=== PATIENT | female | born 1950 | race Caucasian/White ===

== ENCOUNTER 2018-11-27 06:28 | Day surgery (SDC) | payer MEDICARE, OTHER, SELFPAY ==
--- NOTE | 2018-11-22 10:28 | EKG12_ITS ---
Test Reason : PREOP Blood Pressure : / mmHG Vent. Rate : 053 BPM Atrial Rate : 053 BPM P-R Int : 180 ms QRS Dur : 098 ms QT Int : 478 ms P-R-T Axes : 000 032 110 degrees QTc Int : [address] & T wave abnormality, consider anterolateral ischemia Abnormal ECG Confirmed by KEIRA HANSON, TIGRE ([id number]), assistant film editor FADUMO JACKSON ([id number]) on 11/26/2018 2:54:43 PM Referred By: Real Soto Confirmed By:BUCK CROCKETT MD
[2018-11-22 11:56] LABS: Anion Gap 4 (5-15); BUN 20 mg/dL (7-18); BUN/Creat Ratio 18.5 RATIO (10-20); Calcium,Total 9.7 mg/dL (8.5-10.1); Chloride 105 mmol/L (98-107); Creatinine, Serum 1.08 mg/dL (0.55-1.02); EST Glomerular Filtration Rate 53 mL/min (>60); Est Glom Filt Rate - Afr Amer 65 mL/min (>60); Glucose 112 mg/dL (74-106); Potassium 4.2 mmol/L (3.5-5.1); Sodium Level 139 mmol/L (136-145)
[2018-11-27] VITALS (7 sets, daily range): BP systolic 104–128; BP diastolic 62–81; PULSE 57–66; RESP 16; TEMP 35.8–36.8; O2SAT 93–100; BMI 31.2
[2018-11-27] MEDS: Lactated Ringers 1,000 ML 100 ML IV (07:21)
[2018-11-27] MEDS: Oxymetazoline 0.05% 1 SPRAY SPRAY.BTL 15 SPRAY (08:00)
--- NOTE | 2018-11-27 08:02 | PCM.DC ---
You will use the following diet at home:: No restrictions Your food should be the consistency of: Regular Additional Activity Instructions:: keep water out of left ear Call your doctor if your incision/area has: Increased Pain/ Swelling Additional Dressing/Incision Instructions:: mupirocin to tragus incision twice daily for 2 wks. Allergies/Adverse Reactions: Allergies Iodinated Contrast Media [Iodinated Contrast Media - IV Dye] Allergy (Verified 11/20/18 13:05) Hives Penicillins Allergy (Verified 11/20/18 13:05) Rash albuterol Adverse Reaction (Verified 11/20/18 13:05) Other insomnia Medications to take at Discharge Aspirin E.C. [Ecotrin] 81 mg PO DAILY@0800 03/18/15 Biotin [Buck Biotin] 10,000 mcg PO DAILY 03/18/15 Cholecalciferol (Vitamin D3) [Vitamin D3] 5,000 unit PO DAILY 03/18/15 Cyanocobalamin (Vitamin B-12) [Vitamin B12] 2,500 mcg PO DAILY 03/18/15 Metoprolol Tartrate [Lopressor (Beta Reece)] 50 mg PO BID 03/18/15 Montelukast [Singulair] 10 mg PO QHS 03/18/15 Omeprazole [Prilosec] 20 mg PO DAILY PRN PRN 03/18/15 Solifenacin Succinate [Vesicare] 5 mg PO DAILY 03/18/15 Triamterene 37.5MG/Hctz 25MG [Dyazide (G)] 1 cap PO DAILY 03/18/15 Umeclidinium Brm/Vilanterol Tr [Anoro Ellipta 62.5-25 Mcg INH] 1 inh PO DAILY PRN 03/18/15 Anastrozole [Arimidex] 1 mg PO DAILY 11/20/18 Olmesartan Medoxomil [Benicar] 20 mg PO DAILY 11/20/18 Blacklick-3/Dha/Epa/Fish Oil [Fish Oil 1,000 mg Softgel] 1 ea PO BID 11/20/18 Acetaminophen/Codeine #3 [Tylenol#3] 1 tab PO Q6H PRN PRN 3 Days #10 tab 11/27/18 Ciprofloxacin [Cipro] 250 mg PO BID #10 tab 11/27/18 The following prescriptions were given: Ciprofloxacin [Cipro] 250 mg PO BID #10 tab Prescription Printed Acetaminophen/Codeine #3 [Tylenol#3] 1 tab PO Q6H PRN PRN 3 Days #10 tab PRN Reason: Pain Prescription Printed Primary Care Physician: Joshua Guy [Primary Care Provider] - Test Results: Test results from this visit will be discussed in further detail at your follow-up appointment, if applicable. Please Follow Up With: Real Soto MD When: 1 month
--- NOTE | 2018-11-27 08:03 | PCM.OPRPT ---
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 eustachian tube dysfunction. 2. central perforation tympanic membrane, left Post-Operative Diagnosis: 1. eustachian tube dysfunction. 2. central perforation tympanic membrane, left Surgery/Procedure Performed:: 1. eustachian tube dilation, left. 2. cartilage tympanoplasty, left ear. 3. left tragal cartilage graft Type of Anesthesia:: General Description of Procedure: on the day of the procedure, after appropriate informed consent was obtained, the patient was brought to the operating room and placed in supine position on the operating table. she was placed under general endotracheal anesthesia by the anesthesiologist. the bilateral nasal cavities were decongested with oxymetazoline-soaked pledgets. the acclarent AERA system was inserted into the left nasal cavity and advanced into the left eustachian tube orifice using a 30 degree endoscope until there was a soft stop. the balloon was inflated to 12 daniela for 2 minutes and retracted. the left ear was prepped and draped in sterile fashion. the tragus was injected with lidocaine/epinephrine. the binocular operating microscope was used to evaluate the left ear. a speculum was placed and a 5x4mm posterior central perforation was seen. the edges were postage-stamped with a alvarez and an adhesion to the promontory was lysed. a 1 cm posterior tragal incision was made with a #15 blade. a portion of tragal cartilage was dissected in the supraperichondrial plane with an iris scizzor and harvested. hemostasis was achieved with the bipolar and the incision was closed with 5-0 fast gut. the graft was trimmed accordingly and scalloped into a butterfly cartilage graft using a knife under the microscope. this was carefully inserted into the tympanic membrane defect and secured into place, as one 'flange' was medial to the TM and one was lateral. gelfoam was placed lateral to the graft and bacitracin was placed lateral to the gelfoam. the patient was awoken from anesthesia and transferred to the PACU in stable condition.
[2018-11-27] MEDS: Ciprofloxacin 0.3% 2.5ml Bottle 1 DRP (08:10)
[2018-11-27] MEDS: Neomycin/Bacitracin/Polymyxin Ointment 1 APPLIC (08:30)
== END 2018-11-27 10:29 | disposition home or self-care (01) ==
LOC: SDC 06:29 → AC 06:29
PROVIDERS: Family Provider Internal Medicine; PCP Internal Medicine; Referring Provider Otolaryngology; Visit Provider Otolaryngology
PROC: (CPT 21235; principal; 2018-11-27 07:30)
PROC: (CPT 21235; 2018-11-27 07:30)
DX: H72.02 Central perforation of tympanic membrane, left ear (principal); H69.82 Other specified disorders of Eustachian tube, left ear; J30.2 Other seasonal allergic rhinitis; I10 Essential (primary) hypertension; K21.9 Gastro-esophageal reflux disease without esophagitis; J44.9 Chronic obstructive pulmonary disease, unspecified; Z85.3 Personal history of malignant neoplasm of breast; Z79.82 Long term (current) use of aspirin; Z79.51 Long term (current) use of inhaled steroids; Z79.899 Other long term (current) drug therapy
CPT/HCPCS: 00120; 21235; 69610; C9745; 36415; 80048; 93005; J7120; J2405

== ENCOUNTER → 2019-05-16 | Outpatient (CLI) | payer MEDICARE, OTHER, SELFPAY ==
[2018-11-27 07:02] VITALS: BMI 31.2
--- NOTE | 2019-05-16 | LES_PTH ---
PATIENT: MARY MCCARTHY LOC: [facility] U#:[id number] AGE/SX: 68/F ROOM: RE05/16/[address]: Dr. Kenny Hayden MD : [id number] BED: DIS: 05/16/2019 SPEC #: [id number] RECD: 05/16/19 09:49 STATUS: DENISE JOSEPHINE #: [id number] ЕЛЕНА: 05/16/19 00:[address]: Kenny Hayden DEPT: SURGICAL PATHOLOGY RECD BY: Rafael Davis ENTERED: 05/16/19 10:38 SP TYPE: Lesion OTHR DR: Dr. Joshua Guy MD Tissues: Skin of eyelid, NOS Procedures: Surgery Specimen Level IV HEADER OPERATION: Removal of lesion left upper lid PRE-OP DIAGNOSIS: Possible inclusion cyst TISSUE SUBMITTED: Left upper eyelid lesion MICROSCOPIC DIAGNOSIS Lesion of left upper eyelid, biopsy: Consistent with eccrine hydrocystoma. AM:yehuda 05/17/19 MICROSCOPIC DESCRIPTION Slides are reviewed. GROSS DESCRIPTION Received in fixative is one container labeled with the patient's name and designated left upper lid. The specimen consists of a piece of kelley-white skin measuring 0.6 x 0.2 x 0.1 cm. The specimen is totally submitted in one cassette. / SJ:rg 05/16/19 TC:1 CPT: 17559
== END | disposition home or self-care (01) ==
LOC: LABSPEC 09:56
PROVIDERS: PCP Internal Medicine; Referring Provider Ophthalmology; Visit Provider Ophthalmology
DX: L98.9 Disorder of the skin and subcutaneous tissue, unspecified (principal)
CPT/HCPCS: 88305

== ENCOUNTER → 2023-09-04 | Outpatient (CLI) | payer MEDICARE, SELFPAY ==
--- NOTE | 2023-09-04 09:38 | CDU_ITS ---
Reason For Study: Lt Eye Retinal Occlusion Rt. Velocities/BP Lt. Velocities/BP Prox CCA 80.1/18.6 cm/sec. Prox CCA 49.3/14.2 cm/sec. Mid CCA 61.4/14.2 cm/sec. Mid CCA 51.5/16.4 cm/sec. Dist CCA 55.9/12.0 cm/sec. Dist CCA 50.4/15.3 cm/sec. Prox ICA 71.3/17.5 cm/sec. Prox ICA 57.0/14.2 cm/sec. Mid ICA 55.9/17.5 cm/sec. Mid ICA 64.1/19.1 cm/sec. Dist ICA 70.2/17.5 cm/sec. Dist ICA 76.8/21.9 cm/sec. Rt. ICA/CCA = 1.2. Lt. ICA/CCA = 1.5. Prox ECA 59.4/6.5 cm/sec. Prox ECA 82.0/12.7 cm/sec. Rt. Vert. 27.7/7.0 cm/sec. Lt. Vert. 58.1/14.2 cm/sec. Right Extracranial There is intimal thickening but no significant atherosclerotic plaque noted in the right common carotid artery. There is heterogeneous, irregular atherosclerotic plaque noted in the right internal carotid artery. There is intimal thickening but no significant atherosclerotic plaque noted in the right external carotid artery. Antegrade flow is noted in the right vertebral artery. Left Extracranial There is intimal thickening but no significant atherosclerotic plaque noted in the left common carotid artery. There is heterogeneous, irregular atherosclerotic plaque noted in the left internal carotid artery. There is heterogeneous, irregular atherosclerotic plaque noted in the left external carotid artery. Antegrade flow is noted in the left vertebral artery. Procedure Carotid Duplex 39642. This is a Carotid Duplex examination using B-mode, color flow and specral Doppler. The exam was diagnostic. Exam performed in department. VL/Carotid Duplex Ultrasound Interpretation Summary Mild (<50%) stenosis right extracranial internal carotid. Mild (<50%) stenosis left extracranial internal carotid. Patent and antegrade vertebrals bilaterally. Ordering Physician: Kenny Hayden Referring Physician: Joshua Guy Performed By: Odin Mix RVT
== END | disposition home or self-care (01) ==
LOC: CVS 09:31
PROVIDERS: PCP Internal Medicine; Visit Provider Ophthalmology
DX: H34.12 Central retinal artery occlusion, left eye (principal); I65.29 Occlusion and stenosis of unspecified carotid artery
CPT/HCPCS: 93880

== ENCOUNTER → 2025-02-24 | Outpatient (CLI) | payer MEDICARE, SELFPAY ==
[2025-02-24 12:39] LABS: Hematocrit 43.5 % (37-47); Hemoglobin 14.0 g/dL (12.0-15.0); Mean Corp Hgb Conc 32.2 g/dL (32-36); Mean Corpuscular Volume 92.4 fL (81-99); Mean Platelet Vol. 10.3 fl (6.2-12.0); Platelet Count 171 K/mm3 (150-450); RBC Distribution Width CV 13.8 % (11.6-14.6); RBC Distribution Width SD 47.1 fl (35.1-43.9); Red Blood Count 4.71 M/mm3 (4.2-5.4); White Blood Count 7.6 K/mm3 (4.4-11.0)
[2025-02-24 13:15] LABS: Anion Gap 10 (5-15); BUN 13 mg/dL (4-19); BUN/Creat Ratio 16.2 RATIO (10-20); Calcium,Total 9.1 mg/dL (7.6-11.0); Carbon Dioxide 28.9 mmol/L (21.0-32.0); Chloride 102 mmol/L (98-108); Glucose 114 mg/dL (70-99); Potassium 3.7 mmol/L (3.3-5.1)
== END | disposition home or self-care (01) ==
LOC: LAB 11:32
PROVIDERS: PCP Internal Medicine; Referring Provider Otolaryngology; Visit Provider Otolaryngology
DX: Z01.818 Encounter for other preprocedural examination (principal)
CPT/HCPCS: 36415; 80048; 85027